=== PATIENT | female | born 1985 | race Two or more races ===

== ENCOUNTER 2017-04-13 18:50 | Emergency (ER) | payer SELFPAY ==
[~2017-04-13] VITALS: Ht 157.5 cm; Wt 71.5 kg
[2017-04-13] MEDS ORDERED: PROCHLORPERAZINE 5 MG/ML, 2ML ONE (19:53)
[2017-04-13] MEDS ORDERED: DIPHENHYDRAMINE 50 MG/ML, 1ML ONE (19:54)
[2017-04-13] MEDS ORDERED: KETOROLAC 30 MG/1 ML ONE (19:54)
[2017-04-13] MEDS ORDERED: KETOROLAC 30 MG/1 ML IVPush ONE (20:00)
[2017-04-13] MEDS ORDERED: PROCHLORPERAZINE 5 MG/ML, 2ML IVPush ONE (20:00)
[2017-04-13] MEDS ORDERED: SODIUM CHLORIDE 0.9% 1,000ML IVBOLUS ONE (20:00)
[2017-04-13] MEDS ORDERED: DIPHENHYDRAMINE 50 MG/ML, 1ML IVPush ONE (20:00)
[2017-04-13] MEDS ORDERED: SODIUM CHLORIDE FLUSH 10ML SYR IVF ONE (20:00)
[2017-04-13 21:53] VITALS: BP 107/72
== END 2017-04-13 21:54 | disposition home or self-care (01) ==
LOC: ED 21:35
DX: R51 Headache (principal)
CPT/HCPCS: 70450; 96361; 96374; 96375; 99284; J0780; J1200; J1885; J7030